=== PATIENT | male | born 1955 | race Caucasian/White ===

== ENCOUNTER 2017-07-28 16:04 | Emergency (ER) | payer OTHER ==
[~2017-07-28] VITALS: Ht 157.5 cm; Wt 58.0 kg
[2017-07-28 16:06] VITALS: Ht 157.5 cm; Wt 58.0 kg
[2017-07-28] MEDS ORDERED: PSYL1040 PO (17:18)
[2017-07-28] MEDS ORDERED: HYDR25SU23 PR (17:19)
[2017-07-28] MEDS ORDERED: TRAM50TA2 PO (17:19)
--- NOTE | 2017-07-28 17:30 | ERD ---
ER Documentation Chief Complaint Date/Time DATE: 07/28/17 TIME: 17:26 Chief Complaint HAS RECTAL PAIN, FELT LUMP LAST SATURDAY, HEMORRHOIDECTOMY 1 YEAR AGO HPI Patient is a 62-year-old male with a past medical history of hemorrhoids who presents to the ED with hemorrhoid. He states that it is painful. He does state that he has constipation and he has not noticed any blood in his bowel movements on the toilet paper. He denies fever or chills. He denies abdominal pain, nausea, vomiting or diarrhea. He states that he has had these symptoms for a long time but has gotten worse in the last 4 days. No other complaints. ROS All systems reviewed and are negative except as per history of present illness. Medications Home Meds Active Scripts Tramadol HCl (Tramadol HCl) 50 Mg Tablet, 50 MG PO Q6 Y for PAIN, #20 TAB Prov:ELEN BISWAS PA-C 07/28/17 Hydrocortisone Acetate (Anusol-Hc) 25 Mg Supp.rect, 1 SUPP MO BID Y for HEMORROID PAIN/ITCHING, #12 SUPP.RECT Prov:ELEN BISWAS PA-C 07/28/17 Psyllium Seed* (Metamucil* Powder) 1,040 Gm Powder, 10 GM PO TID for 14 Days, EA Prov:ELEN BISWAS PA-C 07/28/17 Allergies Allergies: Coded Allergies: No Known Allergy (Unverified , 10/08/14) PMhx/Soc History of Surgery: Yes (hemorrhoidectomy) Hx Miscellaneous Medical Probl: Yes (hemorrhoids) Hx Alcohol Use: No Hx Substance Use: No Hx Tobacco Use: Yes (1 pk /day) Smoking Status: Current every day smoker FmHx Family History: No coronary disease, No diabetes, No other Physical Exam Vitals Vital Signs Date Time Temp Pulse Resp B/P Pulse Ox O2 Delivery O2 Flow Rate FiO2 07/28/17 16:06 99.1 78 18 132/89 99 Physical Exam GENERAL: Well-developed, well-nourished male. Appears in no acute distress. HEAD: Normocephalic, atraumatic. EYES: Pupils are equally reactive bilaterally. EOMs grossly intact. No conjunctival erythema. ENT: Moist mucous membranes. No uvula deviation. No kissing tonsils. No exudates. NECK: Supple. No lymphadenopathy or thyromegaly. No meningismus. negative kernig. negative brudinski. LUNG: Clear to auscultation bilaterally. No rhonchi, wheezing, rales or coarse breath sounds. HEART: Regular rate and rhythm. No murmurs, rubs or gallops. ABDOMEN: No scars, ecchymosis or rashes noted. Soft, nontender, and nondistended. Positive bowel sounds in all four quadrants. No rebound tenderness , no guarding. (-) McBurneys point tenderness. No CVA tenderness. external hemorroid visualized with no signs of thrombos. No signs of abscess BACK: No midline tenderness. Extremities: Equal pulses bilaterally. No peripheral clubbing, cyanosis or edema. No unilateral leg swelling. NEUROLOGIC: Alert and oriented. Moving all four extremities. 5/5 strength in all extremities. Normal speech. Steady gait. SKIN: Normal color. Warm and dry. No rashes or lesions. Capillary refill < 2 seconds Procedures/MDM ER COURSE: I kept the patient and/or family informed of laboratory and diagnostic imaging results throughout the emergency room course. MEDICAL DECISION MAKING: This is a 62-year-old male with a past medical history of hemorrhoids who presents with hemorrhoid. Vital signs were reviewed. Patient is afebrile. Patient is not hypoxic. Patient is nontoxic or ill-appearing. I examined hemorrhoid and it is external and does not show thrombosis. Therefore there I did not do incision of the hemorroid int he ED. advised patient to follow-up with his primary care provider and to see a GI specialist. No other complaints and I do not think a CT scan was warranted at this time. Low suspicion for abscess. Low suspicion for thrombosed hemorrhoid, abscess, sepsis. DISCHARGE:At this time, patient is stable for discharge and outpatient management with no new complaints during the ER course. Patient was sent home with tramadol, Anusol, Metamucil. Patient will be discharged home with instructions to recheck for new or worsening symptoms such as fever, nausea, weakness, LOC and to follow up with primary care in the next 1-2 days. Patient was advised to return to the ER for any new or worsening symptoms. Plan was discussed and patient and/or family understands and agrees. Home instructions were given. Departure Diagnosis: Primary Impression: External hemorrhoid Condition: Stable Patient Instructions: Thrombosed Hemorrhoids, Hemorrhoids [facility] Usted se oliveira hecho un examen mdico de control que le indica que no est en akhil condicin que requiera tratamiento urgente en el Departamento de Emergencia. Un estudio ms profundo y el tratamiento de garrido condicin pueden esperar sin ningn riesgo hasta que usted sea atendida/o en el consultorio de garrido mdico o akhil cl gil. Es responsabilidad suya arreglar akhil dolores para el seguimiento del jennifer. MANEJO DE CONDICIONES NO URGENTES EN EL FUTURO 1) Si usted tiene un mdico de atencin primaria: Usted debera llamar a garrido mdico de atencin primaria antes de venir al departamento de emergencia. Despus de las horas de consultorio, garrido doctor o garrido asociado/a est disponible por telfono. El mdico o enfermero de rafael en el servicio telefnico puede asesorarle por sabine medio para atender el problema, o jennifer contrario se puede programar kahil dolores. 2) Si usted no tiene un mdico de atencin primaria: Llame al mdico o clnica de referencia que aparece abajo aliya las horas de consultorio para hacer akhil dolores para que le vean. CLINICAS: [facility] [phone] [address] [facility] [phone] [facility]. [facility] [phone] [address] [facility]. [facility] [phone] [facility]. [place] [id number] [phone] [facility]. [phone] [address] Additional Instructions: Llame al doctor MAANA y soy akhil DOLORES PARA DENTRO DE 1-2 AMARO.Dgale a la secretaria que nosotros le instruimos hacer esta dolores.Avise o llame si garrido condicin se empeora antes de la dolores. Regresa aqui si peor o no mejor. ELEN BISWAS PA-C Jul 28, 2017 17:30
== END 2017-07-28 18:08 | disposition home or self-care (01) ==
LOC: FTE 16:04
DX: K64.4 Residual hemorrhoidal skin tags (principal); F17.210 Nicotine dependence, cigarettes, uncomplicated
CPT/HCPCS: 99283